=== PATIENT | male | born 1990 | race Caucasian/White ===

== ENCOUNTER 2023-06-30 03:51 | Emergency (ER) | payer OTHER ==
[2023-06-30] MEDS ORDERED: Sodium Chloride 0.9% 10 ML Syringe FLUSH PRN (05:00)
[2023-06-30] MEDS ORDERED: Sodium Chloride 0.9% 1,000 ML IV ONE (05:05)
[2023-06-30] MEDS ORDERED: Ondansetron 4 MG Tab.DIS PO ONE (05:05)
[2023-06-30 05:08] LABS: BASOPHILS PERCENT AUTO 0.1 % (0.0-1.0); EOSINOPHILS PERCENT AUTO 0.6 % (1.0-3.0); HEMATOCRIT 42.7 % (40.0-54.0); HEMOGLOBIN 14.5 g/dL (14.0-18.0); LYMPHOCYTES PERCENT AUTO 6.5 % (20.5-50.1); MEAN CORPUSCULAR HEMOGLOBIN 27.9 pg (27.0-34.0); MEAN CORPUSCULAR VOLUME 82.3 fL (80-100); MONOCYTES PERCENT AUTO 7.8 % (2-8); PLATELET COUNT,PLT 372 10^3/uL (150-450); RED BLOOD CELL COUNT 5.19 10^6/uL (4.6-6.2); WHITE BLOOD CELL COUNT,WBC 23.3 10^3/uL (5.0-10.0)
[2023-06-30 05:15] LABS: A/G RATIO 1.1; ANION GAP 14.9 mEq/L (7-13); BILIRUBIN TOTAL 0.4 mg/dL (0.2-1.0); BUN/CREATININE RATIO 18.2 (No establ ref range); CREATININE 1.21 mg/dL (0.70-1.30); EST CRCL DRUG DOSING (CG) 88.46 mL/min; MAGNESIUM 1.8 mg/dL (1.8-2.4); POTASSIUM,K 3.9 mmol/L (3.5-5.1); PROTEIN TOTAL,TP 7.7 g/dL (6.4-8.2)
[2023-06-30] MEDS ORDERED: Take Home: Ondansetron 4 MG Tab.DIS, 5 Tab Pack PO ONE (06:33)
== END 2023-06-30 06:51 | disposition home or self-care (01) ==
LOC: DL.ED 03:51
DX: K52.9 Noninfective gastroenteritis and colitis, unspecified (principal)
CPT/HCPCS: 36415; 80053; 83690; 83735; 85025; 99283; A9270; J7030; Q0162; 96360; 99284-25; J3490